=== PATIENT | male | born 1950 | race Caucasian/White ===

== ENCOUNTER → 2018-08-22 | Outpatient (REF) | payer MEDICARE | LOC: M SFHCPLAZ 10:00 | PROVIDERS: ATTEND Dermatology | DX: C44.229 Squamous cell carcinoma of skin of left ear and external auricular canal (principal); D23.22 Other benign neoplasm of skin of left ear and external auricular canal ==

== ENCOUNTER 2019-11-27 10:15 | Day surgery (SDC) | payer MEDICARE ==
[~2019-11-27 10:15] MED LIST: LIDOCAINE 2% 100MG/5ML SDV (FOR ANES.) ONE; MIDAZOLAM INJ 2MG/2ML VIAL (J2250 PER 1MG) ONE; ONDANSETRON 4MG/2ML VIAL ONE; ROCURONIUM BROMIDE 50 MG/5 ML VIAL ONE; dexameTHASONE 4 MG/ML 1ML VIAL (J1100 PER 1MG) ONE; fentaNYL 100 MCG/2 ML INJECTION (J3010) ONE; propofoL 200 MG/20 ML VIAL ONE
[2019-11-27] MEDS ORDERED: CETACAINE SPRAY 5GM ONE (11:58)
[2019-11-27] MEDS ORDERED: PHENYLephrine HCL 500 MCG/5 ML (100MCG/ML) SYRINGE (J2370) ONE (11:58)
[2019-11-27] MEDS ORDERED: SUGAMMADEX SODIUM 500 MG/5 ML VIAL (BRIDION) ONE (11:58)
[2019-11-27] MEDS ORDERED: ePHEDrine SULFATE 25 MG/5 ML(5MG/ML) SYRINGE ONE (11:58)
[2019-11-27] MEDS ORDERED: ACETAMINOPHEN 1000MG 100ML IV BTL (OFIRMEV) (J0131 PER 10MG) ONE (11:58)
--- NOTE | 2020-01-01 11:39 | REP ---
PORTABLE CHEST X-RAY: SINGLE VIEW HISTORY: Status post bronchoscopy. This report was delayed due to an extended episode of computer network disruption experienced by this facility. COMPARISON: None. FINDINGS: There are two fiducial markers in the right upper parahilar region. There is no evidence of pneumothorax or hydrothorax. Evidence of chronic obstructive pulmonary disease (COPD) with bibasilar fibrosis and an overall hyperinflation. Heart is not enlarged. Aortic calcification is seen. Monitoring electrodes are present. IMPRESSION: No complications seen. MTDD
== END 2019-11-27 15:00 | disposition home or self-care (01) ==
LOC: M SDC 10:15
PROVIDERS: ATTEND Internal Medicine Pulmonary Disease
DX: R91.8 Other nonspecific abnormal finding of lung field (principal); J47.9 Bronchiectasis, uncomplicated; J43.2 Centrilobular emphysema; J96.11 Chronic respiratory failure with hypoxia; F17.218 Nicotine dependence, cigarettes, with other nicotine-induced disorders; I10 Essential (primary) hypertension; G47.30 Sleep apnea, unspecified
CPT/HCPCS: 31623; 31624; 31626; 31628; 31629; 71045; 76000; 87070; 87071; 87102; 87116; 87205; 87206; 88104; 88173; 88305; J0131; J1100; J2250; J2370; J2405; J3010; S2900

== ENCOUNTER 2023-08-21 10:48 | Day surgery (SDC) | payer MEDICARE ==
[~2023-08-21] VITALS: Ht 177.8 cm; Wt 66.7 kg
[~2023-08-21 10:48] MED LIST changes: +ALBU2.5V10 INH; +ALBU8.5H INH; +ATOR1TAB21 PO; +BRIM0.2S13 OU; +COMBAER6 INH; +CYCL-707 PO; +DORZ2SOL4 OU; +ECOT81TA5 PO; +FERR325T19 PO; -LIDOCAINE 2% 100MG/5ML SDV (FOR ANES.) ONE; +LISI10TA22 PO; +LR 1,000 ML IV SCH; -MIDAZOLAM INJ 2MG/2ML VIAL (J2250 PER 1MG) ONE; +MIDAZOLAM INJ 2MG/2ML VIAL As Ordered ONE; -ONDANSETRON 4MG/2ML VIAL ONE; -ROCURONIUM BROMIDE 50 MG/5 ML VIAL ONE; -dexameTHASONE 4 MG/ML 1ML VIAL (J1100 PER 1MG) ONE; -fentaNYL 100 MCG/2 ML INJECTION (J3010) ONE; +fentaNYL 100 MCG/2 ML INJECTION As Ordered ONE; -propofoL 200 MG/20 ML VIAL ONE
[2023-08-21] MEDS: PHENYLEPHRINE 2.5% OPHTH SOL 2ML OS SCH (12:09)
[2023-08-21] MEDS: FLURBIPROFEN 0.03% OPHTH SOLN 2.5 ML OS SCH (12:09)
[2023-08-21] MEDS: ATROPINE SULFATE 1% OPHTH SOLN 2ML BTL OS SCH (12:09)
[2023-08-21] MEDS: TETRACAINE 0.5% OPHTH SOLN 4ML OS SCH (12:09)
[2023-08-21] MEDS ORDERED: TRYPAN BLUE 0.06 % 2.25 ML OPHTH SYR (VISIONBLUE) As Ordered ONE (13:17)
[2023-08-21] MEDS: LIDOCAINE 1% SDV 5ML VIAL As Ordered ONE (13:34)
[2023-08-21] MEDS: CEFUROXIME 1MG/0.1ML INTRACAMERAL INJ As Ordered ONE (13:41)
[2023-08-21] MEDS: DUOVISC (0.50ML VISCOAT/0.85ML PROVISC) OPHTH KIT As Ordered ONE (14:00)
[2023-08-21 14:10] VITALS: BP 114/65; TEMP 99.1; O2SAT 92
== END 2023-08-21 14:32 | disposition home or self-care (01) ==
LOC: M SDC 10:48
PROVIDERS: ATTEND Ophthalmology
DX: H25.12 Age-related nuclear cataract, left eye (principal); H40.1121 Primary open-angle glaucoma, left eye, mild stage; G47.30 Sleep apnea, unspecified; R06.02 Shortness of breath; Z79.899 Other long term (current) drug therapy; F17.210 Nicotine dependence, cigarettes, uncomplicated
CPT/HCPCS: 66991; C1783; J0697; J2250; J3010; V2632

== ENCOUNTER 2023-09-18 08:30 | Day surgery (SDC) | payer MEDICARE ==
[~2023-09-18] VITALS: Ht 177.8 cm; Wt 64.4 kg
[2023-09-18] MEDS: TETRACAINE 0.5% OPHTH SOLN 4ML OD SCH (09:15)
[2023-09-18] MEDS: PHENYLEPHRINE 2.5% OPHTH SOL 2ML OD SCH (09:16)
[2023-09-18] MEDS: FLURBIPROFEN 0.03% OPHTH SOLN 2.5 ML OD SCH (09:16)
[2023-09-18] MEDS: ATROPINE SULFATE 1% OPHTH SOLN 2ML BTL OD SCH (09:16)
[2023-09-18] MEDS: LIDOCAINE 1% SDV 5ML VIAL As Ordered ONE (10:47)
[2023-09-18] MEDS: CEFUROXIME 1MG/0.1ML INTRACAMERAL INJ As Ordered ONE (10:57)
[2023-09-18] MEDS: TRYPAN BLUE 0.06 % 2.25 ML OPHTH SYR (VISIONBLUE) As Ordered ONE (10:57)
[2023-09-18] MEDS: DUOVISC (0.50ML VISCOAT/0.85ML PROVISC) OPHTH KIT As Ordered ONE (10:58)
[2023-09-18] MEDS: VISCOAT 40-30MG/ML 0.5ML SYRINGE As Ordered ONE (11:05)
[2023-09-18 11:35] VITALS: BP 134/66; TEMP 98.5; O2SAT 95
== END 2023-09-18 11:50 | disposition home or self-care (01) ==
LOC: M SDC 08:30
PROVIDERS: ATTEND Ophthalmology
DX: H25.11 Age-related nuclear cataract, right eye (principal); H40.1111 Primary open-angle glaucoma, right eye, mild stage; G47.30 Sleep apnea, unspecified; I10 Essential (primary) hypertension; E78.00 Pure hypercholesterolemia, unspecified; J44.9 Chronic obstructive pulmonary disease, unspecified; Z99.81 Dependence on supplemental oxygen; M54.9 Dorsalgia, unspecified; D64.9 Anemia, unspecified; F17.210 Nicotine dependence, cigarettes, uncomplicated; Z79.899 Other long term (current) drug therapy; Z79.82 Long term (current) use of aspirin
CPT/HCPCS: 66991; A4649; C1783; J0697; J2250; J3010; V2632